=== PATIENT | female | born 1980 | race Caucasian/White ===

== ENCOUNTER 2019-05-07 12:49 | Emergency (ER) | payer OTHER ==
[~2019-05-07] VITALS: Ht 157.5 cm; Wt 64.0 kg
[2019-05-07] MEDS ORDERED: NORCO 7.5-3251 EACH PO (16:41)
[2019-05-07] MEDS ORDERED: CYCLOBENZAPRINE5 MG PO (16:41)
[2019-05-07 17:53] VITALS: BP 117/66
== END 2019-05-07 17:58 | disposition home or self-care (01) ==
LOC: ER 12:49
DX: S09.8XXA Other specified injuries of head, initial encounter (principal); M79.604 Pain in right leg; M54.6 Pain in thoracic spine; V89.2XXA Person injured in unspecified motor-vehicle accident, traffic, initial encounter; Y92.89 Other specified places as the place of occurrence of the external cause; Y93.89 Activity, other specified; Y99.8 Other external cause status